=== PATIENT | male | born 1965 | race Caucasian/White ===

== ENCOUNTER 2018-07-07 12:32 | Emergency (ER) | payer SELFPAY ==
[~2018-07-07] VITALS: Ht 185.4 cm; Wt 135.6 kg
[~2018-07-07 12:32] MED LIST: BP med; OMEP20TA2 PO
[2018-07-07] MEDS ORDERED: TETANUS,DIPTH,PERTUSS P/F (BOOSTRIX) 0.5 ML VIAL IM ONE (12:45)
[2018-07-07] MEDS ORDERED: LIDOCAINE 1% INJ 20 ML 20 ML VIAL INJ ONE (12:45)
--- NOTE | 2018-07-07 12:52 | ED Integumentary General ---
General Chief Complaint: Skin/Wound Problems Stated Complaint: LEFT HAND CUT Source: patient Exam Limitations: no limitations History of Present Illness Date Seen by Provider: Jul 07, 2018 Time Seen by Provider: 12:45 Initial Comments 3-year-old male who presents to emergency room with complaints of shutting his left third finger in a wooden door at his house. He has a laceration to the distal tip of the pad of his finger. Fingernail is intact. He is not up-to-date on his tetanus vaccine. Timing/Duration: just prior to arrival Location: hands (left third finger) Associated Symptoms: denies symptoms Allergies and Home Medications Allergies Coded Allergies: No Known Drug Allergies (Unverified , 01/05/13) Home Medications Cephalexin 500 Mg Capsule, 500 MG PO BID Prescribed by: AVERY BOONE on 07/07/18 1409 [BP med] , DAILY, (Reported) Patient Home Medication List Home Medication List Reviewed: Yes Constitutional: see HPI; No chills, No fever Skin: see HPI, other (laceration to 3rd left finger. ) All Other Systems Reviewed Negative Unless Noted: Yes Past Piguypg-Exkdgu-Gzdbbs Hx Past Med/Social Hx: Reviewed Nursing Past Med/Soc Hx Patient Social History Recent Foreign Travel: No Contact w/Someone Who Travel: No Immunizations Up To Date Date of Influenza Vaccine: Jan 05, 2013 Past Medical History Reproductive Disorders: No Sexually Transmitted Disease: No HIV/AIDS: No Adverse Reaction/Blood Tranf: No Family Medical History Reviewed Nursing Family Hx Physical Exam Vital Signs Vital Signs - First Documented 07/07/18 12:42 Temp 97.1 Pulse 97 Resp 20 B/P (MAP) 148/101 (117) Pulse Ox 94 Capillary Refill : General Appearance: WD/WN, no apparent distress Respiratory: chest non-tender, lungs clear, normal breath sounds, no respiratory distress, no accessory muscle use Gastrointestinal: normal bowel sounds, non tender, soft, no organomegaly, no pulsatile mass Neurologic/Psychiatric: alert, normal mood/affect, oriented x 3 Skin: normal color, warm/dry Skin Problem Character: linear, other (laceration to 3rd left finger. There is a linear flap to the distal tip of the left third finger. [id number] intact. Circulation is intact.) Procedures/Interventions Wound Location: Upper Extremities Other Wound Location Left third finger Wound Length (cm): 4 Wound's Depth, Shape: superficial, linear Wound Explored: clean Irrigated w/ Saline (ccs): 200 Anesthesia: 1% Lidocaine Volume Anesthetic (ccs): 3 Wound Debrided: minimal Suture: Prolene Suture Size: 4-0 Number of Sutures: 6 Progress The area was anesthetized with approximately 3 mL of lidocaine without epinephrine. The wound was cleaned and irrigated with approximately 200 mL's of normal saline. The laceration was closed with 6 simple interrupted sutures of 4- 0 Prolene. The patient was updated on his tetanus vaccine. Progress/Results/Core Measures Results/Orders My Orders Orders - PAOLO,AVERY Dipht,Pertuss(Acell),Tet Adult (Boostrix (07/07/18 12:45) Lidocaine 1% Inj 20 Ml (Xylocaine 1% Inj (07/07/18 12:45) Finger(S) (07/07/18 12:42) Medications Given in ED Current Medications Medications Dose Ordered Sig/Jolene Route Start Time Stop Time Status Last Admin Dose Admin Diphtheria/ Tetanus/Acell Pertussis 0.5 ml ONCE ONCE IM 07/07/18 12:45 07/07/18 12:46 DC 07/07/18 12:50 0.5 ML Lidocaine HCl 20 ml ONCE ONCE INJ 07/07/18 12:45 07/07/18 12:46 DC 07/07/18 12:50 20 ML Vital Signs/I&O 07/07/18 12:42 Temp 97.1 Pulse 97 Resp 20 B/P (MAP) 148/101 (117) Pulse Ox 94 Departure Impression Primary Impression: Open fracture of tuft of distal phalanx of finger Additional Impression: Laceration Disposition: 01 HOME, SELF-CARE Condition: Stable/Unchanged Departure-Patient Inst. Decision time for Depature: 14:09 Referrals: NO,LOCAL PHYSICIAN (PCP/Family) Primary Care Physician Patient Instructions: Laceration Repair With Stitches (DC) Add. Discharge Instructions: Take medication as directed. You may use ibuprofen and Tylenol for pain as directed by the bottle. For pain unrelieved by ibuprofen and Tylenol you may add hydrocodone. Follow-up with your primary care provider within 1 week for recheck. Follow-up with [address] [phone] with in 1 week for a recheck. Call today for appointment times. Return back to the emergency room for any worsening symptoms, signs of infection, pain, drainage, redness, red streaks going up the arm, fever, or any concerns as needed. Return back to the emergency room in 7-10 days to have the sutures removed. All discharge instructions reviewed with patient and/or family. Voiced understanding. Scripts Hydrocodone Bit/Acetaminophen (Hydrocodone/Acetaminophen 5/325mg Tablet) 1 Tab Tab 1 EACH PO Q4H PRN for PAIN, #14 TAB Prov: AVERY BOONE 07/07/18 Cephalexin (Keflex) 500 Mg Capsule 500 MG PO BID for 10 Days, #20 CAP Prov: AVERY BOONE 07/07/18 AVERY BOONE Jul 07, 2018 12:52
--- NOTE | 2018-07-07 13:17 | Diagnostic Imaging Report ---
Indication: Slammed third finger in a door. Time of exam: 12:53 PM Three views of the left third finger were obtained. There is a fracture involving the tuft of the third finger. No significant displacement or angulation is seen. There is some soft tissue swelling present in the distal third finger with soft tissue defect. No radiopaque foreign body is identified. Proximal and middle phalanges are intact Impression: Tuft fracture of the third finger with a soft tissue defect. Dictated by: Dictated on workstation # [id number]
[2018-07-07] MEDS ORDERED: CEPH-507 PO (14:09)
[2018-07-07] MEDS ORDERED: ACHD5005 PO (14:11)
[2018-07-07 14:45] VITALS: BP 148/101
--- OUTSIDE RECORDS SUMMARY | 2018-07-07 18:28 | XMS REPORT | Continuity of Care Document ---
Author Author [facility] Organization [facility] Address Unknown Phone Unavailable Allergies Active Description Code Type Severity Reaction Onset Reported/Identified Relationship to Patient Clinical Status Yes No Known Drug Allergies [id number] Drug Allergy Unknown N/A 01/05/2013 Medications There is no data. Problems There is no data. Procedures There is no data. Results There is no data. Encounters ACCT No. Visit Date/Time Discharge Status Pt. Type Provider Facility Loc./Unit Complaint [id number] 08/17/2015 15:06:00 08/17/2015 16:58:00 DIS Emergency SARAH LOWERY, NICKI Liu [facility] ER
== END 2018-07-07 14:45 | disposition home or self-care (01) ==
LOC: EDUNIT# 12:32 → ER 12:34
DX: S62.633A Displaced fracture of distal phalanx of left middle finger, initial encounter for closed fracture (principal); S61.213A Laceration without foreign body of left middle finger without damage to nail, initial encounter; Z23 Encounter for immunization; W26.8XXA Contact with other sharp object(s), not elsewhere classified, initial encounter
CPT/HCPCS: 73140; 90715

== ENCOUNTER 2018-07-22 11:37 | Emergency (ER) | payer SELFPAY ==
[~2018-07-22] VITALS: Ht 185.4 cm; Wt 135.6 kg
[~2018-07-22 11:37] MED LIST changes: +ACHD5005 PO; +CEPH-507 PO
--- OUTSIDE RECORDS SUMMARY | 2018-07-22 11:44 | XMS REPORT | Continuity of Care Document ---
Author Author [facility] Organization [facility] Address Unknown Phone Unavailable Allergies Active Description Code Type Severity Reaction Onset Reported/Identified Relationship to Patient Clinical Status Yes No Known Drug Allergies [id number] Drug Allergy Unknown N/A 01/05/2013 Medications There is no data. Problems Date Dx Coded Attending Type Code Diagnosis Diagnosed By 08/17/2015 SARAH LOWERY, NICKI Liu Ot 300.00 ANXIETY STATE NOS 08/17/2015 NICKI SMITH MD Ot 368.16 PSYCHOPHYSIC VISUAL DIST 07/11/2018 AVERY BOONE Ot S61.213A LACERATION W/O FB OF L MID FINGER W/O DA 07/11/2018 AVERY BOONE Ot S62.633A DISP FX OF DISTAL PHALANX OF LEFT MIDDLE 07/11/2018 AVERY BOONE Ot W26.8XXA CONTACT WITH OTHER SHARP OBJECT(S), NEC, 07/11/2018 AVERY BOONE Ot Z23 ENCOUNTER FOR IMMUNIZATION Procedures There is no data. Results There is no data. Encounters ACCT No. Visit Date/Time Discharge Status Pt. Type Provider Facility Loc./Unit Complaint [id number] 07/07/2018 12:34:00 07/07/2018 14:45:00 DIS Outpatient AVERY BOONE [facility] ER LEFT HAND CUT [id number] 08/17/2015 15:06:00 08/17/2015 16:58:00 DIS Emergency NICKI SMITH MD [facility] ER PSYCH EVAL
[2018-07-22 12:08] VITALS: BP 130/80
== END 2018-07-22 12:09 | disposition home or self-care (01) ==
LOC: EDUNIT# 11:37 → ER 11:40
DX: S61.213D Laceration without foreign body of left middle finger without damage to nail, subsequent encounter (principal); X58.XXXD Exposure to other specified factors, subsequent encounter

== ENCOUNTER 2021-08-03 08:35 | Emergency (ER) | payer SELFPAY ==
[~2021-08-03] VITALS: Ht 152.4 cm; Wt 113.3 kg
[2021-08-03 08:40] VITALS: BP 141/98
[2021-08-03] MEDS ORDERED: NS IV 1000 ML 1,000 ML ONE (08:44)
[2021-08-03] MEDS ORDERED: fentaNYL INJ 100 MCG/2 ML AMP ONE (08:44)
[2021-08-03] MEDS ORDERED: fentaNYL INJ 100 MCG/2 ML AMP IVP ONE (08:45)
[2021-08-03] MEDS ORDERED: NS IV 1000 ML 1,000 ML IV SCH (08:45)
--- NOTE | 2021-08-03 08:48 | ED GU-Male ---
General Stated Complaint: TESTICULAR PAIN Source: patient Exam Limitations: no limitations History of Present Illness Date Seen by Provider: Aug 03, 2021 Time Seen by Provider: 08:27 Initial Comments Patient to the ER by [facility] from [place] where they were summonsed because he was complaining of testicular pain since 7:00 this morning. They said they found him laying in the yard; he got onto the cot for them. Patient has a history of schizophrenia and his significant other states she does not think is been taking his Latuda or trazodone for some amount of time. The patient admits to using methamphetamines recreationally but cannot say when the last time he used them last. He is not having any nausea just severe pain in his testicles. He has not had sex in a long time he says. He has not urinated since the pain started and does not endorse dysuria at this time. He denies any discharge from the penis. He is not having any fevers or chills. He denies other significant medical or surgical history. He is a rather difficult historian. Allergies and Home Medications Allergies Coded Allergies: No Known Drug Allergies (Unverified , 01/05/13) Patient Home Medication List Home Medication List Reviewed: Yes Cephalexin (Keflex) 500 Mg Capsule, 500 MG PO BID Prescribed by: AVERY BOONE on 07/07/18 1409 Cephalexin (Cephalexin) 500 Mg Tablet, 500 MG PO BID Prescribed by: CHRISTIANO LABOY on 08/03/21 1358 Doxycycline Hyclate (Doxycycline Hyclate) 100 Mg Tablet, 100 MG PO BID Prescribed by: CHRISTIANO LABOY on 08/03/21 1136 Hydrocodone Bit/Acetaminophen (Lortab 5 Mg Tablet) 1 Tab Tab, 1 EACH PO Q4H PRN for PAIN Prescribed by: AVERY BOONE on 07/07/18 1411 [BP med] , DAILY, (Reported) Entered as Reported by: ZUHAIR MANN on 08/17/15 1530 Review of Systems Review of Systems Constitutional: No chills, No diaphoresis EENTM: No ear discharge, No hearing loss, No ear pain Respiratory: No cough, No short of breath Cardiovascular: No chest pain, No edema Gastrointestinal: No abdominal pain, No constipation, No diarrhea, No nausea, No vomiting Genitourinary: see HPI; denies dysuria Musculoskeletal: No back pain, No joint pain All Other Systemes Reviewed Negative Unless Noted: Yes Past Uwdnxgw-Vnchcp-Pwfqvn Hx Patient Social History Tobacco Use?: No Use of E-Cig and/or Vaping dev: No Substance use?: Yes Substance type: Amphetamines, Methamphetamine Alcohol Use?: Yes Alcohol type: Beer Alcohol Frequency: Several times a month Past Medical History Surgeries: No Respiratory: No Cardiac: No Neurological: No Reproductive Disorders: No Sexually Transmitted Disease: No HIV/AIDS: No Gastrointestinal: No Musculoskeletal: No Endocrine: No Cancer: No Psychosocial: No Integumentary: No Blood Disorders: No Adverse Reaction/Blood Tranf: No Physical Exam Vital Signs Vital Signs - First Documented 08/03/21 08:40 Temp 36.8 Pulse 76 Resp 17 B/P (MAP) 141/98 (112) Pulse Ox 95 O2 Delivery Room Air Capillary Refill : Height, Weight, BMI Height: 6'1.00" Weight: 299lbs. 0oz. [id number]; 35.15 BMI Method:Stated General Appearance: moderate distress, obese, other (Disheveled) HEENT: PERRL/EOMI, pharynx normal Neck: full range of motion, supple, normal inspection Cardiovascular: normal peripheral pulses, regular rate, rhythm Respiratory: lungs clear, normal breath sounds, no respiratory distress, no accessory muscle use Gastrointestinal: normal bowel sounds, non tender, soft Male: other (Scrotum is swollen and tender. Testicles palpable, tender to palpation. No lesions on the penis or scrotum. No discharge from the meatus.) Extremities: normal range of motion, no pedal edema, normal capillary refill Neurologic/Psychiatric: alert, oriented x 3, other (Anxious affect, closing eyes refusing to make eye contact and wincing in pain but answers questions with some prompting.) Procedures/Interventions Suture Size: 4-0 Progress/Results/Core Measures Suspected Sepsis SIRS Temperature: Pulse: Respiratory Rate: Laboratory Tests 08/03/21 08:42: White Blood Count 5.5 Blood Pressure / Mean: Laboratory Tests 08/03/21 08:42: Creatinine 1.04, Platelet Count 149, Total Bilirubin 0.7 Results/Orders Lab Results Laboratory Tests Test 08/03/21 08:42 Range/Units White Blood Count 5.5 4.3-11.0 10^3/uL Red Blood Count 4.94 4.30-5.52 10^6/uL Hemoglobin 14.6 13.3-17.7 g/dL Hematocrit 44 40-54 % Mean Corpuscular Volume 89 80-99 fL Mean Corpuscular Hemoglobin 30 25-34 pg Mean Corpuscular Hemoglobin Concent 33 32-36 g/dL Red Cell Distribution Width 12.8 10.0-14.5 % Platelet Count 149 130-400 10^3/uL Mean Platelet Volume 10.0 9.0-12.2 fL Immature Granulocyte % (Auto) 0 % Neutrophils (%) (Auto) 63 42-75 % Lymphocytes (%) (Auto) 21 12-44 % Monocytes (%) (Auto) 9 0-12 % Eosinophils (%) (Auto) 5 0-10 % Basophils (%) (Auto) 1 0-10 % Neutrophils # (Auto) 3.5 1.8-7.8 10^3/uL Lymphocytes # (Auto) 1.2 1.0-4.0 10^3/uL Monocytes # (Auto) 0.5 0.0-1.0 10^3/uL Eosinophils # (Auto) 0.3 0.0-0.3 10^3/uL Basophils # (Auto) 0.0 0.0-0.1 10^3/uL Immature Granulocyte # (Auto) 0.0 0.0-0.1 10^3/uL Sodium Level 141 135-145 MMOL/L Potassium Level 3.5 L 3.6-5.0 MMOL/L Chloride Level 107 98-107 MMOL/L Carbon Dioxide Level 27 21-32 MMOL/L Anion Gap 7 5-14 MMOL/L Blood Urea Nitrogen 15 7-18 MG/DL Creatinine 1.04 0.60-1.30 MG/DL Estimat Glomerular Filtration Rate 74 BUN/Creatinine Ratio 14 Glucose Level 108 H 70-105 MG/DL Calcium Level 8.9 8.5-10.1 MG/DL Corrected Calcium 9.3 8.5-10.1 MG/DL Total Bilirubin 0.7 0.1-1.0 MG/DL Aspartate Amino Transf (AST/SGOT) 15 5-34 U/L Alanine Aminotransferase (ALT/SGPT) 18 0-55 U/L Alkaline Phosphatase 60 40-136 U/L C-Reactive Protein High Sensitivity 0.17 0.00-0.50 MG/DL Total Protein 6.5 6.4-8.2 GM/DL Albumin 3.5 3.2-4.5 GM/DL My Orders Orders - CHRISTIANO LABOY Ed Iv/Invasive Line Start (08/03/21 08:40) Ns Iv 1000 Ml (Sodium Chloride 0.9%) (08/03/21 08:45) Syphilis Antibody Screen (08/03/21 08:40) Cbc With Automated Diff (08/03/21 08:40) Comprehensive Metabolic Panel (08/03/21 08:40) Hs C Reactive Protein (08/03/21 08:40) Fentanyl Inj (Sublimaze Injection) (08/03/21 08:45) Fentanyl Inj (Sublimaze Injection) (08/03/21 08:44) Ns Iv 1000 Ml (Sodium Chloride 0.9%) (08/03/21 08:44) Olanzapine Orally Dissolve Tab (Zyprexa (08/03/21 09:15) General/Regular (08/03/21 Breakfast) Ziprasidone Injection (Geodon Injection) (08/03/21 12:36) Water (Sterile) For Injection (Sterile W (08/03/21 12:36) Medications Given in ED Current Medications Medications Dose Ordered Sig/Jolene Route Start Time Stop Time Status Last Admin Dose Admin Fentanyl Citrate 75 mcg ONCE ONCE IVP 08/03/21 08:45 08/03/21 08:46 DC 08/03/21 08:46 75 MCG Vital Signs/I&O 08/03/21 08:40 Temp 36.8 Pulse 76 Resp 17 B/P (MAP) 141/98 (112) Pulse Ox 95 O2 Delivery Room Air Capillary Refill : Progress Note #1: Time: 08:47 Progress Note A liter of fluids, 75 mcg of fentanyl IV and will check labs and urinalysis including a GC, chlamydia, syphilis suspecting orchitis or less likely a torsed testicle. Ultrasound. Progress Note #2: Time: 09:15 Progress Note Patient disappeared when no one was looking and is presumed to left AMA without an ultrasound. He did get some pain medicine but declined Zyprexa. Diagnostic Imaging Diagonstic Imaging: Ultrasound Plain Films/CT/US/NM/MRI: other (Scrotum) Reviewed: Reviewed by Me Departure Impression Primary Impression: Scrotum pain Disposition: 07 AGAINST MEDICAL ADVICE Condition: Against Medical Advice Departure-Patient Inst. Decision time for Depature: 18:26 Referrals: NO,LOCAL PHYSICIAN (PCP/Family) Primary Care Physician Patient Instructions: Hydrocele/Varicocele (DC) Add. Discharge Instructions: Return to ER for worsening symptoms otherwise follow-up with your doctor CHRISTIANO LABOY Aug 03, 2021 08:48
[2021-08-03 08:49] LABS: BASOPHILS % (AUTO) 1 % (0-10); EOSINOPHILS # (AUTO) 0.3 10^3/uL (0.0-0.3); EOSINOPHILS % (AUTO) 5 % (0-10); HEMATOCRIT 44 % (40-54); HEMOGLOBIN 14.6 g/dL (13.3-17.7); LYMPHOCYTES # (AUTO) 1.2 10^3/uL (1.0-4.0); LYMPHOCYTES % (AUTO) 21 % (12-44); MEAN CORPUSCULAR HEMOGLOBIN 30 pg (25-34); MEAN CORPUSCULAR HGB CONC 33 g/dL (32-36); MEAN CORPUSCULAR VOLUME 89 fL (80-99); MONOCYTES # (AUTO) 0.5 10^3/uL (0.0-1.0); MONOCYTES % (AUTO) 9 % (0-12); NEUTROPHILS # (AUTO) 3.5 10^3/uL (1.8-7.8); NEUTROPHILS % (AUTO) 63 % (42-75); PLATELET COUNT 149 10^3/uL (130-400); WHITE BLOOD COUNT 5.5 10^3/uL (4.3-11.0)
[2021-08-03 08:57] LABS: ALBUMIN 3.5 GM/DL (3.2-4.5); POTASSIUM 3.5 MMOL/L (3.6-5.0)
[2021-08-03 08:58] LABS: CALCIUM 8.9 MG/DL (8.5-10.1)
[2021-08-03 09:00] LABS: TOTAL PROTEIN 6.5 GM/DL (6.4-8.2)
[2021-08-03 09:01] LABS: BILIRUBIN,TOTAL 0.7 MG/DL (0.1-1.0)
[2021-08-03 09:03] LABS: CREATININE SERUM 1.04 MG/DL (0.60-1.30)
[2021-08-03] MEDS ORDERED: OLANZapine 5 MG ODT (ZyPREXA ZYDIS) PO ONE (09:15)
[2021-08-03] MEDS ORDERED: DOXY100T2 PO (11:36)
[2021-08-03] MEDS ORDERED: ZIPRASIDONE 20 MG INJ (GEODON) VIAL IM ONE (12:36)
[2021-08-03] MEDS ORDERED: WATER (STERILE) FOR INJECTION 10 ML ONE (12:36)
[2021-08-03] MEDS ORDERED: CEPH500T PO (13:58)
== END 2021-08-03 09:25 | disposition home or self-care (01) ==
LOC: ER 08:35 → EDUNIT# 08:37 → ER 09:25
DX: N50.82 Scrotal pain (principal); E66.9 Obesity, unspecified; Z68.35 Body mass index [BMI] 35.0-35.9, adult; Z23 Encounter for immunization
CPT/HCPCS: 36415; 80053; 85025; 86141; 86780

== ENCOUNTER 2021-08-03 10:01 | Emergency (ER) | payer MEDICAID ==
[~2021-08-03] VITALS: Ht 182.8 cm; Wt 113.3 kg
[2021-08-03] MEDS ORDERED: OLANZapine 5 MG ODT (ZyPREXA ZYDIS) PO ONE (10:15)
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
[2021-08-03] MEDS ORDERED: DOXY100T2 PO (11:36)
[2021-08-03] MEDS ORDERED: IOHEXOL 350 MG/ML 100 ML (OMNIPAQUE 350) VIAL IV ONE (11:45)
[2021-08-03] MEDS ORDERED: HOLD METFORMIN - RECEIVED CONTRAST 20 ML VIAL IV SCH (11:45)
[2021-08-03] MEDS ORDERED: CATHETER FLUSH 10 ML SYR IV PRN (11:45)
[2021-08-03] MEDS ORDERED: NS 100 ML (IVPB) BAG IV ONE (11:45)
--- NOTE | 2021-08-03 12:00 | Diagnostic Imaging Report ---
PROCEDURE: US Scrotum. TECHNIQUE: Multiple real-time grayscale images were obtained over the scrotum in various projections bilaterally. INDICATION: Scrotal pain and swelling. The right testicle measures 4.0 x 2.5 x 3.0 cm, left testicle measures 4.0 x 2.1 x 2.8 cm. Both testes show homogeneous echotexture. No discrete mass or vascular compromise is identified. Right epididymis was not well visualized. Left epididymis unremarkable. There is a large right hydrocele and a small left hydrocele. No varicocele is detected. IMPRESSION: 1. No evidence of testicular mass or vascular compromise. 2. Bilateral hydroceles, largest on the right. Dictated by: Dictated on workstation # [id number]
[2021-08-03] MEDS ORDERED: CEPH500T PO (13:58)
== END 2021-08-03 11:23 | disposition left against medical advice (07) ==
LOC: EDUNIT# 10:01 → ER 10:02
DX: N50.811 Right testicular pain (principal); N50.82 Scrotal pain; F41.9 Anxiety disorder, unspecified; F20.9 Schizophrenia, unspecified; Z23 Encounter for immunization; Z79.899 Other long term (current) drug therapy
CPT/HCPCS: 36415; 76870; 87491; 87591; 99282

== ENCOUNTER 2021-08-03 12:32 | Emergency (ER) | payer MEDICAID ==
[~2021-08-03] VITALS: Ht 152.4 cm; Wt 113.3 kg
[~2021-08-03 12:32] MED LIST changes: +DOXY100T2 PO
[2021-08-03] MEDS ORDERED: ceFAZolin INJECTION 1,000 MG ONE (12:39)
[2021-08-03] MEDS ORDERED: WATER (STERILE) FOR INJECTION 10 ML ONE (12:40)
[2021-08-03] MEDS ORDERED: ceFAZolin INJECTION 1,000 MG in WATER (STERILE) FOR INJECTION 10 ML IV ONE (12:45)
[2021-08-03] MEDS ORDERED: WATER (STERILE) FOR INJ 10 ML BTL INJ SCH (12:45)
[2021-08-03] MEDS ORDERED: ZIPRASIDONE 20 MG INJ (GEODON) VIAL IM ONE (12:45)
[2021-08-03] MEDS ORDERED: TETANUS,DIPTH,PERTUSS P/F (BOOSTRIX) 0.5 ML VIAL IM ONE (12:45)
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
[2021-08-03] MEDS ORDERED: IOHEXOL 350 MG/ML 100 ML (OMNIPAQUE 350) VIAL IV ONE (13:00)
[2021-08-03] MEDS ORDERED: HOLD METFORMIN - RECEIVED CONTRAST 20 ML VIAL IV SCH (13:00)
[2021-08-03] MEDS ORDERED: CATHETER FLUSH 10 ML SYR IV PRN (13:00)
[2021-08-03] MEDS ORDERED: NS 100 ML (IVPB) BAG IV ONE (13:00)
[2021-08-03 13:19] LABS: BASOPHILS % (AUTO) 1 % (0-10); EOSINOPHILS # (AUTO) 0.2 10^3/uL (0.0-0.3); HEMOGLOBIN 13.7 g/dL (13.3-17.7); MEAN CORPUSCULAR VOLUME 91 fL (80-99)
[2021-08-03 13:21] LABS: EOSINOPHILS % (AUTO) 5 % (0-10); HEMATOCRIT 42 % (40-54); LYMPHOCYTES # (AUTO) 1.1 10^3/uL (1.0-4.0); LYMPHOCYTES % (AUTO) 22 % (12-44); MEAN CORPUSCULAR HEMOGLOBIN 30 pg (25-34); MEAN CORPUSCULAR HGB CONC 33 g/dL (32-36); MEAN PLATELET VOLUME 10.8 fL (9.0-12.2); MONOCYTES # (AUTO) 0.5 10^3/uL (0.0-1.0); MONOCYTES % (AUTO) 10 % (0-12); NEUTROPHILS # (AUTO) 3.2 10^3/uL (1.8-7.8); NEUTROPHILS % (AUTO) 62 % (42-75); PLATELET COUNT 136 10^3/uL (130-400); WHITE BLOOD COUNT 5.1 10^3/uL (4.3-11.0)
[2021-08-03 13:47] LABS: BILIRUBIN,URINE NEGATIVE (NEGATIVE); CLARITY,URINE CLEAR; COLOR,URINE YELLOW; GLUCOSE, URINE (UA) NEGATIVE (NEGATIVE); KETONES,URINE NEGATIVE (NEGATIVE); LEUKOCYTE ESTERASE ,URINE NEGATIVE (NEGATIVE); NITRITE,URINE NEGATIVE (NEGATIVE); PH,URINE 7.5 (5-9); PROTEIN,URINE NEGATIVE (NEGATIVE)
--- NOTE | 2021-08-03 13:47 | Diagnostic Imaging Report ---
INDICATION: Right-sided neck wound. FINDINGS: There is minimal soft tissue gas in the right neck at the level of the thyroid cartilage. Both common carotid and internal carotid arteries are widely patent. No definite vessel injury is seen. Right vertebral artery is small. Left vertebral artery is dominant. No vertebral injury is seen. No neck hematoma or extravasation of contrast is identified. IMPRESSION: Right neck soft tissue subcutaneous gas. No vessel injury, hematoma, or acute arterial extravasation is identified. Dictated by: Dictated on workstation # [id number]
[2021-08-03 13:55] LABS: BACTERIA,URINE NEGATIVE /HPF; RBC,URINE RARE /HPF; WBC,URINE RARE /HPF
[2021-08-03] MEDS ORDERED: CEPH500T PO (13:58)
[2021-08-03 14:01] LABS: AMPHETAMINE SCREEN, URINE POSITIVE (NEGATIVE); BARBITURATE SCREEN URINE NEGATIVE (NEGATIVE); BENZODIAZEPINES SCREEN URINE NEGATIVE (NEGATIVE); CANNABINOID SCREEN, URINE NEGATIVE (NEGATIVE); COCAINE SCREEN URINE NEGATIVE (NEGATIVE); METHADONE STAT NEGATIVE (NEGATIVE); METHAMPHETAMINE SCREEN URINE S POSITIVE (NEGATIVE); OPIATE SCREEN URINE NEGATIVE (NEGATIVE); OXYCODONE STAT NEGATIVE (NEGATIVE); PROPOXYPHENE STAT NEGATIVE (NEGATIVE); TRICYCLIC ANTIDEPRESSANTS SCRE NEGATIVE (NEGATIVE)
[2021-08-03 14:09] VITALS: BP 163/93
== END 2021-08-03 14:09 ==
LOC: ER 12:33
DX: S11.91XA Laceration without foreign body of unspecified part of neck, initial encounter (principal); S31.030A Puncture wound without foreign body of lower back and pelvis without penetration into retroperitoneum, initial encounter; E66.9 Obesity, unspecified; Z23 Encounter for immunization; Z68.33 Body mass index [BMI] 33.0-33.9, adult; X99.1XXA Assault by knife, initial encounter
CPT/HCPCS: 12042; 51701; 70498; 80306; 81000; 85025; 90471; 93005; 96372; 96374; 99285; G0480; 36415; 80320; 90715

== ENCOUNTER 2023-08-31 10:14 | Emergency (ER) | payer MEDICAID ==
[~2023-08-31] VITALS: Ht 185.5 cm; Wt 158.7 kg
[~2023-08-31 10:14] MED LIST changes: +CEPH500T PO
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
[2023-08-31] MEDS ORDERED: LISI10TA25 PO (11:06)
[2023-08-31 11:13] VITALS: BP 137/100
== END 2023-08-31 11:13 | disposition home or self-care (01) ==
LOC: EDUNIT# 10:14 → ER 10:16
DX: I10 Essential (primary) hypertension (principal)
CPT/HCPCS: 99283

== ENCOUNTER 2023-10-31 14:03 | Emergency (ER) | payer MEDICAID ==
[~2023-10-31] VITALS: Ht 185 cm; Wt 150.0 kg
[~2023-10-31 14:03] MED LIST changes: +LISI10TA25 PO
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
[2023-10-31 14:49] LABS: BACTERIA,URINE TRACE /HPF; BILIRUBIN,URINE NEGATIVE (NEGATIVE); CLARITY,URINE CLEAR; COLOR,URINE YELLOW; GLUCOSE, URINE (UA) NEGATIVE (NEGATIVE); KETONES,URINE NEGATIVE (NEGATIVE); LEUKOCYTE ESTERASE ,URINE NEGATIVE (NEGATIVE); NITRITE,URINE NEGATIVE (NEGATIVE); PH,URINE 5.5 (5-9); PROTEIN,URINE NEGATIVE (NEGATIVE); SQUAMOUS EPITHELIAL CELL,UR RARE /HPF; WBC,URINE 0-2 /HPF
[2023-10-31 14:57] LABS: AMPHETAMINE SCREEN, URINE POSITIVE (NEGATIVE); BARBITURATE SCREEN URINE NEGATIVE (NEGATIVE); CANNABINOID SCREEN, URINE NEGATIVE (NEGATIVE); COCAINE SCREEN URINE NEGATIVE (NEGATIVE); METHADONE STAT NEGATIVE (NEGATIVE); OPIATE SCREEN URINE NEGATIVE (NEGATIVE); OXYCODONE STAT NEGATIVE (NEGATIVE); TRICYCLIC ANTIDEPRESSANTS SCRE NEGATIVE (NEGATIVE)
--- NOTE | 2023-10-31 16:11 | Diagnostic Imaging Report ---
PROCEDURE: US Scrotum w/ Duplex. TECHNIQUE: Multiple Real-time grayscale images were obtained of the scrotum in various projections bilaterally. Color Doppler images were also obtained. INDICATION: Left-sided testicular pain. COMPARISON: 08/03/2021. FINDINGS: The testicles are normal in size, shape and echogenicity. The right testis measures 3.8 x 3.2 x 2.2 cm. The left testis measures 3.8 x 2.9 x 2.2 cm. There is normal color flow Doppler signal of both testicles. No focal testicular mass is seen on either side. Small epididymal head cysts are seen bilaterally. Otherwise, the right and left epididymides are unremarkable. There is no sonographic evidence of epididymitis. Bilateral large hydroceles are seen. IMPRESSION: 1. Bilateral large hydroceles. This is similar on the right and increased on the left since the prior exam. 2. No focal testicular mass. No evidence of torsion. Dictated by: Dictated on workstation # [id number]
[2023-10-31 16:20] VITALS: BP 126/90
== END 2023-10-31 16:19 | disposition home or self-care (01) ==
LOC: EDUNIT# 14:03 → ER 14:04
DX: N43.3 Hydrocele, unspecified (principal); F15.90 Other stimulant use, unspecified, uncomplicated
CPT/HCPCS: 76870; 80306; 81000